=== PATIENT | female | born 1935 | race Two or more races ===

== ENCOUNTER 2023-01-28 19:08 | Emergency (ER) | payer OTHER ==
[~2023-01-28] VITALS: Ht 162.6 cm; Wt 56.0 kg
[2023-01-28] MEDS ORDERED: cloNIDine HCL 0.1 MG TAB PO ONE (19:30)
[2023-01-28 19:47] LABS: Basophils # (auto) 0.1 10 ^3/uL (0-0.2); Basophils % (auto) 1.3 % (0.0-2.0); Eosinophils # (auto) 0.2 10 ^3/uL (0-0.8); Eosinophils % (auto) 2.1 % (0.0-7.0); Hematocrit 37.1 % (36.0-46.0); Hemoglobin 12.1 g/dL (12.2-16.2); Lymphocytes # (auto) 2.3 10 ^3/uL (0.4-5.4); Lymphocytes % (auto) 28.6 % (10.0-50.0); Mean Corpuscular Hemoglobin 30.7 pg (28.0-32.0); Mean Corpuscular Hgb Conc. 32.7 g/dL (32.0-36.0); Mean Corpuscular Volume 93.6 fL (80.0-100.0); Monocytes # (auto) 0.7 10 ^3/uL (0-1.3); Monocytes % (auto) 9.1 % (0.0-12.0); Neutrophils # (auto) 4.8 10 ^3/uL (1.6-8.6); Neutrophils % (auto) 58.9 % (37.0-80.0); Nucleated Red Blood Cells % 0.1 %; Red Blood Cells 3.96 10^6/uL (4.0-5.20); Red Cell Distribution Width 13.4 % (11.8-14.3); White Blood Cell 8.1 10^3/uL (4.4-10.8)
[2023-01-28 19:59] LABS: Albumin 3.9 g/dL (3.4-5.0); Calcium 8.7 mg/dL (8.5-10.1); Magnesium 2.1 mg/dL (1.6-2.6); Potassium 4.6 mmol/L (3.5-5.1)
[2023-01-28 20:02] LABS: BUN/Creatinine Ratio 26.1 (10.0-20.0); Bilirubin, Total 0.2 mg/dL (0.2-1.0); Total Protein 6.7 g/dL (6.4-8.2)
[2023-01-28 21:10] LABS: Urine Bacteria FEW /hpf (None Seen); Urine Blood Negative /uL (Negative); Urine Mucus FEW (None Seen); Urine Specific Gravity 1.017 (1.001-1.035); Urine WBC 40 /hpf (0 - 5)
[2023-01-28] MEDS ORDERED: cefTRIAXone SOD 1,000 MG VL IM ONE (21:45)
[2023-01-28] MEDS ORDERED: CEPH250C PO (22:36)
[2023-01-28 23:01] VITALS: BP 100/42
== END 2023-01-28 23:03 | disposition home or self-care (01) ==
LOC: ER 19:11
DX: N39.0 Urinary tract infection, site not specified (principal); D64.9 Anemia, unspecified; N17.9 Acute kidney failure, unspecified; I10 Essential (primary) hypertension; R42 Dizziness and giddiness; R51.9 Headache, unspecified
CPT/HCPCS: 36415; 71045; 80053; 81001; 83735; 84484; 85025; 93005; 96372; 99285; J0696